=== PATIENT | male | born 1955 | race Caucasian/White ===

== ENCOUNTER 2017-08-10 23:02 | Emergency (ER) | payer OTHER ==
[~2017-08-10] VITALS: Ht 182.9 cm; Wt 89.0 kg
[2017-08-10 23:11] VITALS: BP 124/91; PULSE 87; RESP 18; TEMP 98.5; O2SAT 97
--- NOTE | 2017-08-10 23:54 | RADRPT ---
EXAM DATE/TIME: 08/10/2017 23:40 [facility] COMPARISON: No previous studies available for comparison. INDICATIONS : Trauma. RADIATION DOSE: 56.35 CTDIvol (mGy) MEDICAL HISTORY : Non-responsive. SURGICAL HISTORY : Non-responsive. ENCOUNTER: Initial ACUITY: 1 day PAIN SCALE: Non-responsive LOCATION: cranial TECHNIQUE: Multiple contiguous axial images were obtained of the head. Using automated exposure control and adj ustment of the mA and/or kV according to patient size, radiation dose was kept as low as reasonably a chievable to obtain optimal diagnostic quality images. DICOM format image data is available electro nically for review and comparison. FINDINGS: CEREBRUM: The ventricles are normal for age. No evidence of midline shift, mass lesion, hemorrhage or acute in farction. No extra-axial fluid collections are seen. POSTERIOR FOSSA: The cerebellum and brainstem are intact. The 4th ventricle is midline. The cerebellopontine angle i s unremarkable. EXTRACRANIAL: The visualized portion of the orbits is intact. SKULL: The calvaria is intact. No evidence of skull fracture. CONCLUSION: Normal examination. Eliel Jc MD on August 10, 2017 at 23:50 Board Certified Radiologist. This report was verified electronically.
--- NOTE | 2017-08-11 00:03 | RADRPT ---
EXAM DATE/TIME: 08/10/2017 23:40 [facility] COMPARISON: No previous studies available for comparison. INDICATIONS : Trauma. RADIATION DOSE: 21.08 CTDIvol (mGy) MEDICAL HISTORY : Non-responsive. SURGICAL HISTORY : Non-responsive. ENCOUNTER: Initial ACUITY: 1 day PAIN SCALE: Non-responsive LOCATION: neck TECHNIQUE: Volumetric scanning of the cervical spine was performed. Multiplanar reconstructions in the sagittal, coronal and oblique axial planes were performed. Using automated exposure control and adjustment o f the mA and/or kV according to patient size, radiation dose was kept as low as reasonably achievable to obtain optimal diagnostic quality images. DICOM format image data is available electronically f or review and comparison. FINDINGS: There is minimal retrolisthesis of C5 relative to C6 and minimal anterolisthesis of C3 relative to C4 . There is no evidence of cervical spine fracture. No significant bony canal stenosis is identified. There is moderate degenerative change present throughout with disc space narrowing and endplate osteo phyte formation most significantly at C5-6 and C6-7 and moderate to moderately severe posterior facet arthropathy at multiple levels. There is no evidence of paraspinal hematoma. CONCLUSION: No acute bony injury in the cervical spine Eliel Jc MD on August 10, 2017 at 23:59 Board Certified Radiologist. This report was verified electronically.
[2017-08-11] MEDS ORDERED: HALOPERIDOL LACTATE 5 MG/ML AMP IM ONE (00:15)
[2017-08-11] MEDS ORDERED: LORazepam 2 MG/ML VIAL IM ONE (00:15)
[2017-08-11 00:27] LABS: AUTOMATED NEUTROPHIL # 4.3 TH/MM3 (1.8-7.7); BASOPHIL # 0.1 TH/MM3 (0-0.2); BASOPHIL % 0.8 % (0.0-2.0); EOSINOPHIL # 0.3 TH/MM3 (0-0.4); EOSINOPHIL % 3.4 % (0.0-4.0); HEMATOCRIT 37.5 % (39.0-51.0); HEMOGLOBIN 12.2 GM/DL (13.0-17.0); LYMPH % 42.8 % (9.0-44.0); LYMPHOCYTE # 4.1 TH/MM3 (1.0-4.8); MEAN CELL VOLUME 71.8 FL (80.0-100.0); MEAN CORPUSCULAR HEMOGLOBIN 23.3 PG (27.0-34.0); MEAN CORPUSCULAR HGB CONC 32.4 % (32.0-36.0); MONO % 8.1 % (0.0-8.0); MONOCYTE # 0.8 TH/MM3 (0-0.9); NEUT % 44.9 % (16.0-70.0); PLATELET COUNT 309 TH/MM3 (150-450); RED BLOOD COUNT 5.23 MIL/MM3 (4.50-5.90); RED CELL DISTRIBUTION WIDTH 20.1 % (11.6-17.2); WHITE BLOOD COUNT 9.5 TH/MM3 (4.0-11.0)
[2017-08-11 00:31] LABS: AST (GOT) 51 U/L (15-37); BICARBONATE 21.1 MEQ/L (21.0-32.0); BLOOD UREA NITROGEN 9 MG/DL (7-18); CALCIUM 8.5 MG/DL (8.5-10.1); CHLORIDE 110 MEQ/L (98-107); CREATININE 1.07 MG/DL (0.60-1.30); GLOMERULAR FILTRATION RATE 70 ML/MIN (>89); GLUCOSE,RANDOM 133 MG/DL (74-106); SODIUM (NA) 145 MEQ/L (136-145)
[2017-08-11 00:43] LABS: ACETAMINOPHEN LESS THAN 2.0 MCG/ML (10.0-30.0); ALKALINE PHOSPHATASE 119 U/L (45-117); ALT (GPT) 29 U/L (12-78); TOTAL BILIRUBIN ADULT 0.8 MG/DL (0.2-1.0); TOTAL PROTEIN 8.9 GM/DL (6.4-8.2)
[2017-08-11 01:15] VITALS: BP 122/65; PULSE 100; RESP 18; TEMP 99; O2SAT 92
--- NOTE | 2017-08-11 02:38 | PD ---
HPI Chief Complaint: Psychiatric Symptoms Time Seen by Provider: 23:33 Travel History International Travel<30 days: No Contact w/Intl Traveler<30days: No Traveled to known affect area: No History of Present Illness HPI Patient is a 62-year-old male presenting to emergency department under [place] act for psychiatric evaluation. Patient was making gestures with his hand that resembles a gun like he was going to kill himself according to the Soto act report. Patient made suicidal statements. The patient presented to the emergency department he was aggressive and hitting his head on the wall. H&P is limited due to patient's mental status PFSH Past Medical History Diabetes: Yes Patient Takes Glucophage: No Diminished Hearing: Yes Seizures: Yes (ETOH W/D) Social History Alcohol Use: Yes Tobacco Use: Yes Substance Use: Yes Allergies-Medications (Allergen,Severity, Reaction): Coded Allergies: No Known Drug Allergies (Verified Allergy, Unknown, 08/10/17) Reported Meds & Prescriptions Reported Meds & Active Scripts Active No Active Prescriptions or Reported Medications Review of Systems Except as stated in HPI: all other systems reviewed are Neg Psychiatric: Positive: Suicidal Ideations, Disorder of Thought, Mood Disorder, Substance Abuse Physical Exam Exam Limitations: Intoxication, Combative, Psychotic Narrative GENERAL: Well-developed, well-nourished, male. SKIN: Warm and dry. HEAD: Atraumatic. Normocephalic. EYES: Pupils equal and round. No scleral icterus. No injection or drainage. ENT: No nasal bleeding or discharge. Mucous membranes pink and moist. NECK: Trachea midline. No JVD. CARDIOVASCULAR: Regular rate and rhythm. RESPIRATORY: No accessory muscle use. Clear to auscultation. Breath sounds equal bilaterally. GASTROINTESTINAL: Abdomen soft, non-tender, nondistended. Hepatic and splenic margins not palpable. MUSCULOSKELETAL: Extremities without clubbing, cyanosis, or edema. No obvious deformities. NEUROLOGICAL: Awake and alert. No obvious cranial nerve deficits. Motor grossly within normal limits. Five out of 5 muscle strength in the arms and legs. Normal speech. PSYCHIATRIC: Aggressive and combative mood and affect; insight and judgment impaired. Data Data Last Documented VS Vital Signs Date Time Temp Pulse Resp B/P (MAP) Pulse Ox O2 Delivery O2 Flow Rate FiO2 08/11/17 01:15 99.0 100 18 122/65 (84) 92 Room Air Orders Orders Complete Blood Count With Diff (08/10/17 23:26) Comprehensive Metabolic Panel (08/10/17 23:26) Thyroid Stimulating Hormone (08/10/17 23:26) Psych Screen (08/10/17 23:26) Drug Screen, Random Urine (08/10/17 23:26) Alcohol (Ethanol) (08/10/17 23:26) Salicylates (Aspirin) (08/10/17 23:26) Tylenol (Acetaminophen) (08/10/17 23:26) Ct Brain W/O Iv Contrast(Rout) (08/10/17 ) Ct Cerv Spine W/O Contrast (08/10/17 ) Lorazepam Inj (Ativan Inj) (08/11/17 00:15) Haloperidol Inj (Haldol Inj) (08/11/17 00:15) Restraints Violent (08/11/17 00:08) Restraints Violent (08/11/17 00:11) Diet Diabetic (08/11/17 Breakfast) Labs Laboratory Tests Test 08/10/17 23:05 White Blood Count 9.5 TH/MM3 Red Blood Count 5.23 MIL/MM3 Hemoglobin 12.2 GM/DL Hematocrit 37.5 % Mean Corpuscular Volume 71.8 FL Mean Corpuscular Hemoglobin 23.3 PG Mean Corpuscular Hemoglobin Concent 32.4 % Red Cell Distribution Width 20.1 % Platelet Count 309 TH/MM3 Mean Platelet Volume 7.0 FL Neutrophils (%) (Auto) 44.9 % Lymphocytes (%) (Auto) 42.8 % Monocytes (%) (Auto) 8.1 % Eosinophils (%) (Auto) 3.4 % Basophils (%) (Auto) 0.8 % Neutrophils # (Auto) 4.3 TH/MM3 Lymphocytes # (Auto) 4.1 TH/MM3 Monocytes # (Auto) 0.8 TH/MM3 Eosinophils # (Auto) 0.3 TH/MM3 Basophils # (Auto) 0.1 TH/MM3 CBC Comment DIFF FINAL Differential Comment Blood Urea Nitrogen 9 MG/DL Creatinine 1.07 MG/DL Random Glucose 133 MG/DL Total Protein 8.9 GM/DL Albumin 4.0 GM/DL Calcium Level 8.5 MG/DL Alkaline Phosphatase 119 U/L Aspartate Amino Transf (AST/SGOT) 51 U/L Alanine Aminotransferase (ALT/SGPT) 29 U/L Total Bilirubin 0.8 MG/DL Sodium Level 145 MEQ/L Potassium Level 3.8 MEQ/L Chloride Level 110 MEQ/L Carbon Dioxide Level 21.1 MEQ/L Anion Gap 14 MEQ/L Estimat Glomerular Filtration Rate 70 ML/MIN Thyroid Stimulating Hormone 3rd Gen 0.687 uIU/ML Salicylates Level 3.2 MG/DL Acetaminophen Level LESS THAN 2.0 MCG/ML Ethyl Alcohol Level 287 MG/DL MDM Medical Decision Making Medical Screen Exam Complete: Yes Emergency Medical Condition: Yes Interpretation(s) Laboratory Tests Test 08/10/17 23:05 White Blood Count 9.5 TH/MM3 Red Blood Count 5.23 MIL/MM3 Hemoglobin 12.2 GM/DL Hematocrit 37.5 % Mean Corpuscular Volume 71.8 FL Mean Corpuscular Hemoglobin 23.3 PG Mean Corpuscular Hemoglobin Concent 32.4 % Red Cell Distribution Width 20.1 % Platelet Count 309 TH/MM3 Mean Platelet Volume 7.0 FL Neutrophils (%) (Auto) 44.9 % Lymphocytes (%) (Auto) 42.8 % Monocytes (%) (Auto) 8.1 % Eosinophils (%) (Auto) 3.4 % Basophils (%) (Auto) 0.8 % Neutrophils # (Auto) 4.3 TH/MM3 Lymphocytes # (Auto) 4.1 TH/MM3 Monocytes # (Auto) 0.8 TH/MM3 Eosinophils # (Auto) 0.3 TH/MM3 Basophils # (Auto) 0.1 TH/MM3 CBC Comment DIFF FINAL Differential Comment Blood Urea Nitrogen 9 MG/DL Creatinine 1.07 MG/DL Random Glucose 133 MG/DL Total Protein 8.9 GM/DL Albumin 4.0 GM/DL Calcium Level 8.5 MG/DL Alkaline Phosphatase 119 U/L Aspartate Amino Transf (AST/SGOT) 51 U/L Alanine Aminotransferase (ALT/SGPT) 29 U/L Total Bilirubin 0.8 MG/DL Sodium Level 145 MEQ/L Potassium Level 3.8 MEQ/L Chloride Level 110 MEQ/L Carbon Dioxide Level 21.1 MEQ/L Anion Gap 14 MEQ/L Estimat Glomerular Filtration Rate 70 ML/MIN Thyroid Stimulating Hormone 3rd Gen 0.687 uIU/ML Salicylates Level 3.2 MG/DL Acetaminophen Level LESS THAN 2.0 MCG/ML Ethyl Alcohol Level 287 MG/DL Vital Signs Date Time Temp Pulse Resp B/P (MAP) Pulse Ox O2 Delivery O2 Flow Rate FiO2 5/6/18 01:15 99.0 100 18 122/65 (84) 92 Room Air 08/10/17 23:11 98.5 87 18 124/91 (102) 97 Differential Diagnosis Psychosis versus intoxication versus substance abuse versus metabolic abnormality versus other Narrative Course Patient is 62-year-old male presenting to the emergency department under [place] act his suicidal ideations. Patient was combative, aggressive and attempting to hit his head on the wall when he presented to the emergency department. CT scans and labs ordered and pending. Mental health screening discussed with the patient. Psychiatric screen ordered. CT scan of the head and cervical spine are negative. Haldol and Ativan ordered because patient continued to try to hit his head on the wall and door. Restraints were also ordered at this time. Patient was reassessed, he was chemically restrained, locked restraints were removed. CBC with no acute findings, chemistry with no acute findings, salicylates and acetaminophen level are unremarkable. Alcohol level is 287. Patient is medically clear for psychiatric evaluation. Diagnosis Primary Impression: Medical clearance for psychiatric admission Additional Impression: Alcohol intoxication Qualified Codes: F10.920 - Alcohol use, unspecified with intoxication, uncomplicated Scripts No Active Prescriptions or Reported Meds Condition: Casi Escalona [facility] August 11, 2017 02:38
[2017-08-11 05:31] VITALS: BP 126/60; PULSE 101; RESP 18; TEMP 98; O2SAT 94
[2017-08-11 11:10] VITALS: BP 118/58; PULSE 95; RESP 20; O2SAT 95
--- NOTE | 2017-08-11 12:57 | PD ---
History of Present Illness Chief Complaint: Psychiatric Symptoms Time Seen by Provider: 12:00 Travel History International Travel<30 Days: No Contact w/Intl Traveler<30days: No Known affected area: No Legal Status Legal Status: [place] Act [place] Act Signed By: Ethel Medrano [place] Act Comment: [place] [employer]. Officer Mathieu Magallanes- [id number] History of Present Illness: Patient is a 62 y/o male,, with two daughters in [place] with a terminologist history of alcoholism. He was placed under a [place] Act by [facility] [employer]. The [place] Act states, " Eren Tami advised he wished to kill himself. Eren advised he was tired of life . Eren made a hand gesture with his index finger pointed at this head and advised he was going to put a bullet in his brain. Eren advised he hit his head earlier and was having blurred vision." Patient presented to the ED and a CT of the head was ordered due to his history of blurry vision, CT of the head was accomplished and is negative. Patient states that he does not want to hurt himself and he just wants help for his alcoholism. He states that he was in a Sober House locally and was drinking beer and they "kicked him out." His alcohol level on arrival was 287. Patient smokes 1ppd. Denies any drugs. No medical history. Family history of his father with mental illness and alcoholism. 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 During the night did give the patient Haldol and Ativan. Chart reviewed and patient was discussed with RN. Patient in room J-108. He is disheveled and unkept. He looks his stated age. Alert and oriented x 3. Fund of knowledge is good for current recall and poor for past recall. Gait is steady. Poor concentration and easily distracted. No loose associations. Speech is low for tone, normal for rate. Mood is depressed with flat affect. Patient can get irritable at times. Patient is currently does not show evidence of any withdrawal. Patient is requesting detox. Will request support from [facility] and will place him on the [facility] Protocol while in the hospital to address any concerns with his symptoms. Dx: Depression: Alcoholism PFSH Past Medical History Diabetes: Yes Patient Takes Glucophage: No Diminished Hearing: Yes Seizures: Yes (ETOH W/D) Psychiatric History Psychiatric History Patient states that he has been treated for depression most of his life. He states he has been on all the SSRIs, but cannot recall their names. Currently he is not on any medications. Hx Psychiatric Treatment: pt states he was on medicatins for depression and anxiety but has not taken any in a couple of years. History of Inpatient Treatment: No Social History Hx Alcohol Use: Yes Hx Tobacco Use: Yes Hx Substance Use: No Substance Use Type: Alcohol, Nicotine/Cigarettes Hx of Substance Use Treatment: Yes Allergies-Medications (Allergen,Severity, Reaction): Coded Allergies: No Known Drug Allergies (Verified Allergy, Unknown, 08/10/17) Reported Meds & Prescriptions Reported Meds & Active Scripts Active No Active Prescriptions or Reported Medications Mental Status Examination Appearance: Disheveled Consciousness: Alert Orientation: Person, Place, Situation Motor Activity: Normal gait Speech: Slow (low in tone) Language: Adequate Fund of Knowledge: Poor Attention and Concentration: Easily Distracted Memory: Immediate (intact) Mood: Sad, Irritable Affect: Irritable, Sad, Blunt Thought Process & Associations: Intact Thought Content: Appropriate Hallucination Type: None Delusion Type: None Suicidal Ideation: No Suicidal Plan: No Suicidal Intention: No Homicidal Ideation: No Homicidal Plan: No Homicidal Intention: No Insight: Adequate Judgment: Adequate MDM Medical Decision Making Medical Record Reviewed: Yes Assessment/Plan Patient is a 62 y/o male with a long history of alcoholism. He was living in a Sober House , but was caught drinking and is currently prohibited from returning. He presents sad and depressed, requesting detox. He is cooperative but is easily distracted and can become irritable if you ask multiple questions. He denies any suicidal or homicidal ideations. Plan : Patient's alcohol level was 287 on 08/10/17. Will contact [facility] to see if they will be able to support this patient's care. Patient also advised that [facility] on [facility] can help him with ongoing medication needs regarding his depression. Orders Orders Complete Blood Count With Diff (08/10/17 23:26) Comprehensive Metabolic Panel (08/10/17 23:26) Thyroid Stimulating Hormone (08/10/17 23:26) Psych Screen (08/10/17 23:26) Drug Screen, Random Urine (08/10/17 23:26) Alcohol (Ethanol) (08/10/17 23:26) Salicylates (Aspirin) (08/10/17 23:26) Tylenol (Acetaminophen) (08/10/17 23:26) Ct Brain W/O Iv Contrast(Rout) (08/10/17 ) Ct Cerv Spine W/O Contrast (08/10/17 ) Lorazepam Inj (Ativan Inj) (08/11/17 00:15) Haloperidol Inj (Haldol Inj) (08/11/17 00:15) Restraints Violent (08/11/17 00:08) Restraints Violent (08/11/17 00:11) Diet Regular Basic (08/11/17 Breakfast) Diet Regular Basic (08/11/17 Lunch) Results Vital Signs Date Time Temp Pulse Resp B/P (MAP) Pulse Ox O2 Delivery O2 Flow Rate FiO2 08/11/17 11:10 95 20 118/58 (78) 95 Room Air 08/11/17 05:31 98.0 101 18 126/60 (82) 94 Room Air 08/11/17 01:15 99.0 100 18 122/65 (84) 92 Room Air 08/10/17 23:11 98.5 87 18 124/91 (102) 97 Laboratory Tests Test 08/10/17 23:05 White Blood Count 9.5 Red Blood Count 5.23 Hemoglobin 12.2 Hematocrit 37.5 Mean Corpuscular Volume 71.8 Mean Corpuscular Hemoglobin 23.3 Mean Corpuscular Hemoglobin Concent 32.4 Red Cell Distribution Width 20.1 Platelet Count 309 Mean Platelet Volume 7.0 Neutrophils (%) (Auto) 44.9 Lymphocytes (%) (Auto) 42.8 Monocytes (%) (Auto) 8.1 Eosinophils (%) (Auto) 3.4 Basophils (%) (Auto) 0.8 Neutrophils # (Auto) 4.3 Lymphocytes # (Auto) 4.1 Monocytes # (Auto) 0.8 Eosinophils # (Auto) 0.3 Basophils # (Auto) 0.1 CBC Comment DIFF FINAL Differential Comment Blood Urea Nitrogen 9 Creatinine 1.07 Random Glucose 133 Total Protein 8.9 Albumin 4.0 Calcium Level 8.5 Alkaline Phosphatase 119 Aspartate Amino Transf (AST/SGOT) 51 Alanine Aminotransferase (ALT/SGPT) 29 Total Bilirubin 0.8 Sodium Level 145 Potassium Level 3.8 Chloride Level 110 Carbon Dioxide Level 21.1 Anion Gap 14 Estimat Glomerular Filtration Rate 70 Thyroid Stimulating Hormone 3rd Gen 0.687 Salicylates Level 3.2 Acetaminophen Level LESS THAN 2.0 Ethyl Alcohol Level 287 Diagnosis Primary Impression: Medical clearance for psychiatric admission Additional Impression: Alcohol intoxication Prescriptions No Active Prescriptions or Reported Meds Condition: Stable Problem Qualifiers Additional Impression: Alcohol intoxication Qualified Codes: F10.920 - Alcohol use, unspecified with intoxication, uncomplicated Eva Potter August 11, 2017 12:57
[2017-08-11] MEDS ORDERED: LORazepam 2 MG/ML VIAL IM PRN ×4 (13:30)
[2017-08-11] MEDS ORDERED: LORazepam 1 MG TAB PO PRN (13:30)
[2017-08-11] MEDS ORDERED: LORazepam 2 MG TAB PO PRN (13:30)
[2017-08-11 18:00] VITALS: BP 117/56; PULSE 73; RESP 18; O2SAT 99
== END 2017-08-11 21:33 ==
LOC: NEPJ 23:02
DX: F10.229 Alcohol dependence with intoxication, unspecified (principal); Y90.8 Blood alcohol level of 240 mg/100 ml or more; R45.851 Suicidal ideations; E11.9 Type 2 diabetes mellitus without complications; Z72.0 Tobacco use; Z78.1 Physical restraint status
CPT/HCPCS: 70450; 72125; 80053; 80307; 84443; 85025; 96372; 99285; J1630; J2060

== ENCOUNTER 2017-09-22 04:12 | Emergency (ER) | payer OTHER ==
[~2017-09-22] VITALS: Ht 182.9 cm; Wt 94.0 kg
[2017-09-22 04:22] VITALS: BP 135/80; PULSE 105; RESP 18; TEMP 98.3
[2017-09-22 05:11] LABS: AUTOMATED NEUTROPHIL # 4.1 TH/MM3 (1.8-7.7); BASOPHIL % 0.5 % (0.0-2.0); EOSINOPHIL # 0.4 TH/MM3 (0-0.4); EOSINOPHIL % 4.3 % (0.0-4.0); HEMATOCRIT 43.1 % (39.0-51.0); HEMOGLOBIN 14.1 GM/DL (13.0-17.0); LYMPH % 36.9 % (9.0-44.0); LYMPHOCYTE # 3.1 TH/MM3 (1.0-4.8); MEAN CELL VOLUME 78.4 FL (80.0-100.0); MEAN CORPUSCULAR HEMOGLOBIN 25.7 PG (27.0-34.0); MEAN CORPUSCULAR HGB CONC 32.7 % (32.0-36.0); MEAN PLATELET VOLUME 7.6 FL (7.0-11.0); MONOCYTE # 0.8 TH/MM3 (0-0.9); NEUT % 48.3 % (16.0-70.0); PLATELET COUNT 203 TH/MM3 (150-450); RED BLOOD COUNT 5.49 MIL/MM3 (4.50-5.90); RED CELL DISTRIBUTION WIDTH 22.7 % (11.6-17.2); WHITE BLOOD COUNT 8.4 TH/MM3 (4.0-11.0)
[2017-09-22 05:26] LABS: ALBUMIN 4.3 GM/DL (3.4-5.0); ALT (GPT) 39 U/L (12-78); AST (GOT) 51 U/L (15-37); BICARBONATE 27.9 MEQ/L (21.0-32.0); BLOOD UREA NITROGEN 5 MG/DL (7-18); CALCIUM 9.3 MG/DL (8.5-10.1); CHLORIDE 112 MEQ/L (98-107); CREATININE 1.08 MG/DL (0.60-1.30); GLOMERULAR FILTRATION RATE 69 ML/MIN (>89); GLUCOSE,RANDOM 149 MG/DL (74-106); SODIUM (NA) 148 MEQ/L (136-145)
[2017-09-22 05:35] LABS: ALKALINE PHOSPHATASE 86 U/L (45-117); TOTAL BILIRUBIN ADULT 1.1 MG/DL (0.2-1.0); TOTAL PROTEIN 9.1 GM/DL (6.4-8.2)
--- NOTE | 2017-09-22 05:40 | PD ---
HPI Chief Complaint: Psychiatric Symptoms Time Seen by Provider: 04:34 Travel History International Travel<30 days: No Contact w/Intl Traveler<30days: No Traveled to known affect area: No History of Present Illness HPI Patient 62-year-old male presents emergency department under [place] act, apparently intoxicated he wandered into traffic today an attempt to kill himself. He endorses this as a suicide attempt to me. Is fairly heavily intoxicated on arrival and slurring his. He also told nursing that if he was released today he would go buy a gun and ended all. Patient is throwing things at nursing staff including towels but redirectable to the bed. He has no physical complaints at this time. Denies any trauma tonight. History is limited by intoxication PFSH Past Medical History Diabetes: Yes Patient Takes Glucophage: No Diminished Hearing: Yes Seizures: Yes (ETOH W/D) Tetanus Vaccination: Unknown Social History Alcohol Use: Yes (CHRONIC) Tobacco Use: Yes Substance Use: No Allergies-Medications (Allergen,Severity, Reaction): Coded Allergies: No Known Drug Allergies (Verified Allergy, Unknown, 08/10/17) Reported Meds & Prescriptions Reported Meds & Active Scripts Active No Active Prescriptions or Reported Medications Review of Systems Except as stated in HPI: all other systems reviewed are Neg Physical Exam Narrative GENERAL: Well-developed, disheveled, covered in sand, no obvious distress. SKIN: Focused skin assessment warm/dry. HEAD: Atraumatic. Normocephalic. EYES: Pupils equal and round. No scleral icterus. No injection or drainage. ENT: No nasal bleeding or discharge. Mucous membranes pink and moist. NECK: Trachea midline. No JVD. CARDIOVASCULAR: Regular rate and rhythm. No murmur appreciated. RESPIRATORY: No accessory muscle use. Clear to auscultation. Breath sounds equal bilaterally. GASTROINTESTINAL: Abdomen soft, non-tender, nondistended. Hepatic and splenic margins not palpable. MUSCULOSKELETAL: No obvious deformities. No clubbing. No cyanosis. No edema. NEUROLOGICAL: Awake and alert. No obvious cranial nerve deficits. Motor grossly within normal limits. Normal speech. PSYCHIATRIC: Angry affect, depressed mood, insight fairly poor. Endorses suicidal ideation with planning. Data Data Last Documented VS Vital Signs Date Time Temp Pulse Resp B/P (MAP) Pulse Ox O2 Delivery O2 Flow Rate FiO2 09/22/17 04:22 98.3 105 18 135/80 (98) Orders Orders Complete Blood Count With Diff (09/22/17 04:34) Comprehensive Metabolic Panel (09/22/17 04:34) Thyroid Stimulating Hormone (09/22/17 04:34) Psych Screen (09/22/17 04:34) Drug Screen, Random Urine (09/22/17 04:34) Alcohol (Ethanol) (09/22/17 04:34) Labs Laboratory Tests Test 09/22/17 04:45 White Blood Count 8.4 TH/MM3 Red Blood Count 5.49 MIL/MM3 Hemoglobin 14.1 GM/DL Hematocrit 43.1 % Mean Corpuscular Volume 78.4 FL Mean Corpuscular Hemoglobin 25.7 PG Mean Corpuscular Hemoglobin Concent 32.7 % Red Cell Distribution Width 22.7 % Platelet Count 203 TH/MM3 Mean Platelet Volume 7.6 FL Neutrophils (%) (Auto) 48.3 % Lymphocytes (%) (Auto) 36.9 % Monocytes (%) (Auto) 10.0 % Eosinophils (%) (Auto) 4.3 % Basophils (%) (Auto) 0.5 % Neutrophils # (Auto) 4.1 TH/MM3 Lymphocytes # (Auto) 3.1 TH/MM3 Monocytes # (Auto) 0.8 TH/MM3 Eosinophils # (Auto) 0.4 TH/MM3 Basophils # (Auto) 0.0 TH/MM3 CBC Comment DIFF FINAL Differential Comment MDM Medical Decision Making Medical Screen Exam Complete: Yes Emergency Medical Condition: Yes Differential Diagnosis Alcohol intoxication, depression, suicidal ideation peer Narrative Course Patient room to the emergency department, he has no medical complaints of warrant further workup at this time, he is here under a [place] act. Medically cleared for psychiatric evaluation Diagnosis Primary Impression: Alcohol-induced mood disorder Scripts No Active Prescriptions or Reported Meds Condition: Neno Luevano MD Sep 22, 2017 05:40
[2017-09-22] MEDS ORDERED: LORazepam 2 MG TAB PO PRN (05:45)
[2017-09-22] MEDS ORDERED: LORazepam 2 MG/ML VIAL IV PUSH PRN ×4 (05:45)
[2017-09-22] MEDS ORDERED: IBUPROFEN 600 MG TAB PO ONE (05:45)
[2017-09-22] MEDS ORDERED: LORazepam 1 MG TAB PO PRN (05:45)
[2017-09-22] MEDS ORDERED: LORazepam 2 MG TAB PO ONE (09:15)
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
== END 2017-09-22 11:52 | disposition home or self-care (01) ==
LOC: NEPD 04:12
DX: F10.14 Alcohol abuse with alcohol-induced mood disorder (principal); F10.129 Alcohol abuse with intoxication, unspecified; Y90.8 Blood alcohol level of 240 mg/100 ml or more; R45.851 Suicidal ideations; E11.9 Type 2 diabetes mellitus without complications; Z72.0 Tobacco use; Z59.0 Homelessness
CPT/HCPCS: 80053; 80307; 84443; 85025; 99284

== ENCOUNTER 2017-12-13 20:31 | Inpatient (IN) ==
[2017-12-13] MEDS ORDERED: MethylPREDNISolone Sod Succinate Inj 125 MG/2 ML Vial IV.PUSH ONE ×2 (21:53→22:23)
[2017-12-13] MEDS ORDERED: Ketorolac Inj 30 MG/ML (IVP) Vial IV.PUSH ONE (21:54)
--- NOTE | 2017-12-13 22:18 | XR ---
EXAM DATE: 12/13/2017 10:14 PM EDT AGE/SEX: 62 years / Male INDICATIONS: Right rib pain and shortness of breath. CLINICAL DATA: This is the patient's initial encounter. Patient reports that signs and symptoms have been present for 4 - 6 days and indicates a pain score of 9/10. MEDICAL/SURGICAL HISTORY: None. None. COMPARISON: No prior exams available for comparison. FINDINGS: Left basilar patchiness is noted consistent with probable pneumonia. The heart is normal. Right lung is clear. CONCLUSION: Left basilar patchiness consistent with probable pneumonia. Electronically signed by: Neno Fagan MD 12/13/2017 10:16 PM EDT
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
[2017-12-13] MEDS ORDERED: Azithromycin Inj 500 MG in Sodium Chlor 0.9% Inj 250 ML IV.SIG ONE (22:22)
[2017-12-13 22:47] LABS: Baso % (Auto) 0.2 % (0.0-2.0); Eos # (Auto) 0.2 th/mm3 (0.0-0.4); Eos % (Auto) 2.1 % (0.0-4.0); Hematocrit 33.4 % (39.0-51.0); Hemoglobin 11.1 gm/dL (13.0-17.0); Lymph # (Auto) 1.5 th/mm3 (1.0-4.8); Lymph % (Auto) 12.1 % (9.0-44.0); Mean Corpuscular HGB Conc 33.4 % (32.0-36.0); Mean Corpuscular Hemoglobin 28.3 pg (27.0-34.0); Mean Corpuscular Volume 84.8 fL (80.0-100.0); Mean Platelet Volume 6.9 fL (7.0-11.0); Mono # (Auto) 0.8 th/mm3 (0.0-0.9); Mono % (Auto) 6.4 % (0.0-8.0); Neut # (Auto) 9.5 th/mm3 (1.8-7.7); Neut % (Auto) 79.2 % (16.0-70.0); Platelet Count 226 th/mm3 (150-450); Red Blood Count 3.94 mil/mm3 (4.50-5.90); Red Cell Distribution Width 18.3 % (11.6-17.2)
[2017-12-13 22:53] LABS: Activated Partial Thrombo Time 28.6 sec (24.3-30.1); INR 1.1 Ratio; Prothrombin Time 11.4 sec (9.8-11.6)
[2017-12-13 23:11] LABS: Alanine Aminotransferase 34 U/L (12-78); Albumin 2.3 g/dL (3.4-5.0); Anion Gap 12 meq/L (5-15); Aspartate Aminotransferase 57 U/L (15-37); Blood Urea Nitrogen 6 mg/dL (7-18); Calcium 8.1 mg/dL (8.5-10.1); Carbon Dioxide 26.3 meq/L (21.0-32.0); Chloride 107 meq/L (98-107); Glomerular Filtration Rate Greater Than 89 mL/min (>89); Glucose,Random 92 mg/dL (74-106); Potassium 3.2 meq/L (3.5-5.1); Sodium 145 meq/L (136-145)
[2017-12-13 23:13] LABS: Alkaline Phosphatase 118 U/L (45-117); Total Protein 8.5 g/dL (6.4-8.2)
[2017-12-14] MEDS ORDERED: Haloperidol Inj 5 MG/ML Ampul IV.PUSH PRN (01:53)
[2017-12-14] MEDS ORDERED: Bisacodyl 10 MG Supp RECTAL PRN (01:53)
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
[2017-12-14] MEDS: Sod Chloride 0.9% Inj 1,000 ML IV.CONT SCH ×3 (06:19→22:00)
[2017-12-14] MEDS: Multivitamin/Minerals Therapeutic Tablet PO SCH (08:07)
[2017-12-14] MEDS: Folic Acid 1 MG Tablet PO SCH (08:07)
[2017-12-14] MEDS: LORazepam 1 MG Tablet PO PRN ×3 (08:08→20:48)
[2017-12-14] MEDS: Senna/Docusate Sodium 8.6/50 MG Tablet PO SCH ×2 (08:08→20:49)
[2017-12-14] MEDS ORDERED: Dextrose 50% in Water 50 ML Vial IV.PUSH PRN (08:31)
[2017-12-14] MEDS: Insulin Detemir Inj 1,000 UNIT/10 ML Vial SQ SCH (09:09)
[2017-12-14] MEDS: Lidocaine 5% Patch T-DERMAL SCH (11:58)
[2017-12-14] MEDS: Insulin NovoLOG Aspart Correctional Sugar Inj SQ SCH ×2 (11:59→17:08)
[2017-12-14] MEDS: Acetaminophen 325 MG Tablet PO PRN (20:48)
[2017-12-15] MEDS ORDERED: Azithromycin Inj 250 MG in Sodium Chlor 0.9% Inj 250 ML IV.SIG SCH ×2
[2017-12-15] MEDS: Insulin Detemir Inj 1,000 UNIT/10 ML Vial SQ SCH ×2 (01:06→09:12)
[2017-12-15] MEDS: Insulin NovoLOG Aspart Correctional Sugar Inj SQ SCH ×2 (01:07→09:12)
[2017-12-15] MEDS: Acetaminophen 325 MG Tablet PO PRN ×2 (05:07→09:09)
[2017-12-15] MEDS: Sod Chloride 0.9% Inj 1,000 ML IV.CONT SCH ×2 (05:09→09:08)
[2017-12-15] MEDS: LORazepam 1 MG Tablet PO PRN (09:09)
[2017-12-15] MEDS: Folic Acid 1 MG Tablet PO SCH (09:09)
[2017-12-15] MEDS: Senna/Docusate Sodium 8.6/50 MG Tablet PO SCH (09:09)
[2017-12-15] MEDS: Multivitamin/Minerals Therapeutic Tablet PO SCH (09:09)
[2017-12-15] MEDS: Lidocaine 5% Patch T-DERMAL SCH (09:10)
[2017-12-15 09:14] LABS: Baso % (Auto) 0.1 % (0.0-2.0); Eos % (Auto) 0.1 % (0.0-4.0); Hematocrit 33.3 % (39.0-51.0); Hemoglobin 10.9 gm/dL (13.0-17.0); Lymph # (Auto) 0.8 th/mm3 (1.0-4.8); Lymph % (Auto) 13.5 % (9.0-44.0); Mean Corpuscular HGB Conc 32.6 % (32.0-36.0); Mean Corpuscular Hemoglobin 28.3 pg (27.0-34.0); Mean Corpuscular Volume 86.7 fL (80.0-100.0); Mean Platelet Volume 7.3 fL (7.0-11.0); Mono # (Auto) 0.4 th/mm3 (0.0-0.9); Neut # (Auto) 4.8 th/mm3 (1.8-7.7); Neut % (Auto) 79.3 % (16.0-70.0); Platelet Count 135 th/mm3 (150-450); Red Blood Count 3.84 mil/mm3 (4.50-5.90); Red Cell Distribution Width 17.8 % (11.6-17.2)
[2017-12-15 09:47] LABS: Anion Gap 6 meq/L (5-15); Aspartate Aminotransferase 40 U/L (15-37); Blood Urea Nitrogen 16 mg/dL (7-18); Calcium 8.1 mg/dL (8.5-10.1); Carbon Dioxide 26.6 meq/L (21.0-32.0); Chloride 110 meq/L (98-107); Glomerular Filtration Rate Greater Than 89 mL/min (>89); Glucose,Random 107 mg/dL (74-106); Potassium 3.4 meq/L (3.5-5.1); Sodium 143 meq/L (136-145)
[2017-12-15 09:51] LABS: Alanine Aminotransferase 29 U/L (12-78); Alkaline Phosphatase 107 U/L (45-117); Total Protein 7.4 g/dL (6.4-8.2)
--- NOTE | 2017-12-15 11:31 | P.PNIM ---
Subjective Interval history: Patient says he is feeling better today.. pleuritic Right-sided chest pain improving. Physical Exam Vital signs: Vital Signs 12/14/17 12:00 12/14/17 15:34 12/14/17 16:00 Temperature 98.4 F 98.5 F Pulse Rate 69 66 Respiratory Rate 18 18 Blood Pressure 154/75 H 153/75 H Pulse Oximetry 93 L 94 L 93 L 12/14/17 19:00 12/14/17 20:00 12/14/17 20:30 Temperature 96.2 F L Pulse Rate 73 76 76 Respiratory Rate 18 Blood Pressure 154/79 H Pulse Oximetry 96 12/15/17 00:00 12/15/17 01:07 12/15/17 04:00 Temperature 97.8 F 97.3 F L Pulse Rate 60 58 L Respiratory Rate 17 20 18 Blood Pressure 151/77 H 150/82 H Pulse Oximetry 94 L 93 L 12/15/17 06:25 12/15/17 08:00 12/15/17 09:00 Temperature 97.7 F Pulse Rate 67 61 Respiratory Rate 18 18 Blood Pressure 171/86 H Pulse Oximetry 91 L Intake & Output 12/14/17 12/15/17 12/15/17 18:59 06:59 18:59 Intake Total 1600 / 1600 1210 / 1210 500 / 500 Output Total 800 / 800 Balance 1600 / 1600 410 / 410 500 / 500 Weight 71.7 kg Intake: IV 1000 / 1000 350 / 350 500 / 500 NS Inj 1,000 ML @ 100 mls/hr IV 1000 / 1000 500 / 500 .CONT .Q10H KIM Rx#:[id number] Azithromycin Inj 250 MG In NS 250 / 250 Inj 250 ML @ 250 mls/hr IV.SIG Q24H KIM Rx#:[id number] Rocephin Inj 1,000 MG In NS Inj 100 / 100 100 ML @ 200 mls/hr IV.SIG Q24H KIM Rx#:[id number] Oral 600 / 600 860 / 860 Output: Urine 800 / 800 Other: # Voids 3 # Bowel Movements 1 Narrative: GENERAL: Sitting up in bed. Appears comfortable. Alert and oriented 3. SKIN: Warm and dry. HEAD: Normocephalic. EYES: No scleral icterus. No injection or drainage. NECK: Supple, trachea midline. No JVD. CARDIOVASCULAR: Regular rate and rhythm without murmurs, gallops, or rubs. RESPIRATORY: Breath sounds equal bilaterally. No accessory muscle use. Bilateral rhonchi as yesterday, much improved. GASTROINTESTINAL: Abdomen soft, non-tender, nondistended. MUSCULOSKELETAL: No cyanosis, or edema. BACK: Nontender without obvious deformity. No CVA tenderness. Results - Labs CBC & Chem 7: 12/15/17 08:27 12/15/17 08:27 Laboratory Results - last 24 hr 12/14/17 12/15/17 12/15/17 22:10 07:28 08:27 WBC 6.0 RBC 3.84 L Hgb 10.9 L Hct 33.3 L MCV 86.7 MCH 28.3 MCHC 32.6 RDW 17.8 H Plt Count 135 L D MPV 7.3 Neut % (Auto) 79.3 H Lymph % (Auto) 13.5 [place] % (Auto) 7.0 Eos % (Auto) 0.1 Baso % (Auto) 0.1 Neut # (Auto) 4.8 Lymph # (Auto) 0.8 L [place] # (Auto) 0.4 Eos # (Auto) 0.0 Baso # (Auto) 0.0 WBC Differential . Differential Comment Auto diff final Sodium Potassium Chloride Carbon Dioxide Anion Gap BUN Creatinine Estimated GFR POC Glucose 224 H 117 H Random Glucose Calcium Total Bilirubin AST ALT Alkaline Phosphatase Total Protein Albumin 12/15/17 08:27 WBC RBC Hgb Hct MCV MCH MCHC RDW Plt Count MPV Neut % (Auto) Lymph % (Auto) [place] % (Auto) Eos % (Auto) Baso % (Auto) Neut # (Auto) Lymph # (Auto) [place] # (Auto) Eos # (Auto) Baso # (Auto) WBC Differential Differential Comment Sodium 143 Potassium 3.4 L Chloride 110 H Carbon Dioxide 26.6 Anion Gap 6 BUN 16 Creatinine 0.77 Estimated GFR Greater than 89 POC Glucose Random Glucose 107 H Calcium 8.1 L Total Bilirubin 0.7 AST 40 H ALT 29 Alkaline Phosphatase 107 Total Protein 7.4 D Albumin 2.0 L Assessment and Plan - Assessment (1) PNA (pneumonia) Code(s): J18.9 - Pneumonia, unspecified organism Status: Acute (2) Hypoxia Code(s): R09.02 - Hypoxemia Status: Acute (3) Alcohol abuse Code(s): F10.10 - Alcohol abuse, uncomplicated Status: Acute - Plan //PNA: CXR w/ left base infiltrate, images reviewed, s/p Rocephin/Zithro in ER , will continue w/ IV Abx, DuoNeb as needed. = Discharge home on antibiotics to complete treatment course, inhaler. // Hypoxia: O2 sat 88% on RA, persistent hypoxia on RA while in ER, DuoNeb prn , continue O2, monitor closely. = Improved. Patient on room air. // Alcohol Abuse: w/ Acute Alcohol Intoxication. Alcohol 289. CIWA, Seizure Precautions, MVT/Thiamine/Folate replacement. -Blood pressure elevated but does not appear to be withdrawing. //DVT Prophylaxis: SCD/Teds
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
[2017-12-15] MEDS ORDERED: Mag Sulf 1 gm/100 ml Premix 100 ML IV.SIG ONE (12:00)
== END 2017-12-15 12:06 | disposition home or self-care (01) ==
LOC: NEPC 20:31 → NEDA 12-14 01:52 → N04 12-14 02:52
PROVIDERS: ADMIT Internal Medicine; ATTEND Internal Medicine